=== PATIENT | female | born 1950 | race Caucasian/White ===

== ENCOUNTER → 2023-12-14 | Outpatient (CLI) | payer MEDICARE, SELFPAY ==
[2023-12-14 10:28] LABS: Collection Type, Urine Clean Catch
[2023-12-14 11:02] LABS: Parathyroid Hormone Intact 64.4 pg/ml (18.5-88.0)
[2023-12-14 11:08] LABS: Albumin, Serum 4.4 gm/dL (3.4-4.8); Anion Gap 4 (7-16); BUN/Creatinine Ratio 15 Ratio (12-20); Blood Urea Nitrogen 16 mg/dL (9-23); Calcium 9.8 mg/dL (8.3-10.6); Calcium (Corrected) 9.8 mg/dL (8.5-10.1); Carbon Dioxide 30.4 mMol/L (20.0-31.0); Chloride 106 mMol/L (98-107); Creatinine (Component) 1.1 mg/dL (0.6-1.3); Glucose 99 mg/dL (74-106); Osmolality,Calculated 280 (275-295); Phosphorous 2.9 mg/dL (2.4-5.1); Potassium 3.7 mMol/L (3.4-5.1); Sodium 140 mMol/L (136-145); eGFR 53 See Note
[2023-12-14 11:10] LABS: Bacteria,Urine Rare; Bilirubin,Urine Negative (Negative); Blood,Urine 2+ (Negative); Color,Urine Yellow (Lt Yel-Yel); Glucose, Urine Negative (Negative); Hyaline Casts,Urine < 1 /hpf (0-1); Ketones,Urine Negative (Negative); Leukocyte Esterase,Urine Positive (Negative); Nitrite,Urine Negative (Negative); Protein,Urine Trace (Neg - Trace); RBC,Urine 31 /hpf (0-3); Specific Gravity,Urine 1.023 (1.001-1.035); Squamous Epithelial Cell,Urine 35 /hpf (0-5); Urobilinogen,Urine Negative mg/dL (0.0-1.0); WBC,Urine 51 /hpf (0-5)
[2023-12-14 11:14] LABS: Clarity,Urine Hazy (Clear/Hazy)
[2023-12-14 11:23] LABS: Creatinine MALB Rnd Ur 230 mg/dL (30-125); Microalbumin Creat Ratio 8 mg/gCrea (<30); Microalbumin, Random Urine 19 mg/L (0-300)
== END | disposition home or self-care (01) ==
LOC: COPL 09:41
PROVIDERS: PCP Internal Medicine; Referring Provider Internal Medicine; Visit Provider Internal Medicine
DX: N17.9 Acute kidney failure, unspecified (principal); I10 Essential (primary) hypertension
CPT/HCPCS: 36415; 80069; 81001; 82043; 82570; 83970

== ENCOUNTER → 2024-03-05 | Outpatient (CLI) | payer MEDICARE, SELFPAY ==
[2024-03-05 11:27] LABS: Basophils % (Auto) 0 % (0-2.5); Eosinophils # (Auto) 0.1 Thou/mm3 (0.0-0.5); Eosinophils % (Auto) 2 % (0-10); Hematocrit 40.6 % (36.0-46.0); Hemoglobin 13.2 g/dL (12.0-16.0); Immature Granulocytes % (Auto) 1 % (0-0); Immature Granulocytes Auto 0.04 Thou/mm3 (0.00-0.00); Lymphocytes # (Auto) 1.9 Thou/mm3 (1.0-4.8); Lymphocytes % (Auto) 26 % (10-50); Mean Corpuscular HGB Conc 32.5 g/dl (31.0-37.0); Mean Corpuscular Hemoglobin 32.1 pg (25.0-35.0); Mean Corpuscular Volume 99 fL (80-100); Monocytes % (Auto) 13 % (0-12); Neutrophils # (Auto) 4.3 Thou/mm3 (1.8-7.7); Neutrophils % (Auto) 58 % (37-80); Nucleated Red Blood Cell % 0 /100 WBC (0); Platelet Count 288 Thou/mm3 (140-440); RDW Standard Deviation 49.6 fL (36.4-46.3); Red Blood Count 4.11 Miln/mm3 (4.00-5.20); White Blood Count 7.3 Thou/mm3 (3.6-11.0)
[2024-03-05 11:52] LABS: Sed Rate (ESR) 7 mm/hr (0-30)
[2024-03-05 11:55] LABS: Alanine Aminotransferase 29 U/L (10-49); Albumin, Serum 4.6 gm/dL (3.4-4.8); Albumin/Globulin Ratio 1.9 (1.2-2.2); Alkaline Phosphatase 62 U/L (46-116); Anion Gap 10 (7-16); Aspartate Amino Transferase 30 U/L (0-34); BUN/Creatinine Ratio 13 Ratio (12-20); Bilirubin,Total 0.3 mg/dL (0.3-1.2); Blood Urea Nitrogen 12 mg/dL (9-23); C-Reactive Protein < 0.4 mg/dL (0.0-0.9); Calcium 9.6 mg/dL (8.3-10.6); Calcium (Corrected) 9.6 mg/dL (8.5-10.1); Chloride 104 mMol/L (98-107); Creatinine (Component) 0.9 mg/dL (0.6-1.3); Globulin 2.4 gm/dL (2.3-3.5); Glucose 91 mg/dL (74-106); Osmolality,Calculated 280 (275-295); Potassium 3.8 mMol/L (3.4-5.1); Sodium 141 mMol/L (136-145); eGFR > 60 See Note
[2024-03-11 06:36] LABS: Vitamin D, 25-OH, D2 <4 ng/mL; Vitamin D, 25-OH, D3 33 ng/mL; Vitamin D, 25-OH, Total 33 ng/mL (30-100)
== END | disposition home or self-care (01) ==
LOC: COPL 09:56
PROVIDERS: PCP Internal Medicine; Referring Provider Internal Medicine Rheumatology; Visit Provider Internal Medicine Rheumatology
DX: M05.79 Rheumatoid arthritis with rheumatoid factor of multiple sites without organ or systems involvement (principal); M81.0 Age-related osteoporosis without current pathological fracture
CPT/HCPCS: 36415; 80053; 82306; 85025; 85652; 86140

== ENCOUNTER 2024-03-06 08:23 | Emergency (ER) | payer MEDICARE, SELFPAY ==
--- NOTE | 2024-03-06 08:33 | XR_ITS ---
Examination: CT chest, without intravenous contrast. CT abdomen, without intravenous contrast. CT pelvis, without intravenous contrast. 2-D sagittal and coronal reconstructions. 3-D reconstructions. Date and time of exam:March 06, 2024 0909 hours INDICATIONS: Patient fell last week with injury to the chest and abdomen, right-sided chest and abdomen pain CTDI vol (mgy) 6.75 DLP (MGycm)495 Technique: Multiple CT images, 3.0 mm slice thickness, obtained chest, abdomen, pelvis, with the high-resolution 64 slice scanner.. Sagittal and coronal 2-D reconstructions are obtained. 3-D reconstructions Low dose protocols were performed. One or more of the following dose reduction techniques were used; automated exposure control, adjustment of the mA and/or KV according to patient size, use of iterative reconstruction technique. Findings: Thoracic aorta pulmonary arteries intact on this noncontrast study No hemopericardium No pneumothorax, pulmonary contusion or hemothorax The manubrium the body the sternum intact No thoracic vertebral body compression fracture Acute fracture right fourth rib anteriorly without significant displacement Diffuse fatty infiltration throughout the liver No liver splenic or renal laceration Bilateral renal calculi, largest lower pole left kidney 5 mm No perinephric hematoma Abdominal aorta intact, no free blood in the abdomen No bowel obstruction Negative for pneumoperitoneum Colonic diverticulosis No pelvic mass Urinary bladder intact Hips bones of the pelvis intact Chronic osteoporotic compression L3 IMPRESSION: Acute nondisplaced fracture right fourth rib anteriorly Thoracic aorta pulmonary arteries intact No hemopericardium pneumothorax, pulmonary contusion or hemothorax No abdominal parenchymal laceration Bilateral renal calculi Abdominal aorta intact No free blood in the abdomen
[2024-03-06 08:34] VITALS: BP 130/73; PULSE 89; RESP 16; TEMP 37.1; O2SAT 96
--- NOTE | 2024-03-06 08:36 | EDNOTE_ITS ---
ED Fall Injury RME/HPI General Chief Complaint: Back Pain/Injury Stated Complaint: S/P FALL X1 WK , DYSPNEA, RIGHT CHEST- BACK PAIN Time Seen by Provider: 03/06/24 08:26 Arrival date/time: 03/06/24 08:23 RME / HPI RME / HPI Narrative: This section includes all my notes and documentations, including HPI, PE, and ED course.? Ok Pham MD HPI: 73 year old female with history of hypertension, hypothyroidism, arthritis pres ents to the ED for evaluation of right sided chest/rib cage pain today. Described as aching in sensation that is aggravated with movements or taking deep breaths. Reportedly suffered a ground level mechanical fall 1 week ago while walking in her home and evidently struck the entire right side just below the armpit down the right hip on a piece of furniture. States she has had mild pain since however worsening in the last 2 days. States she is taking Tramadol BID for arthritic pain that provides some relief. Denies any head injury or LOC. Denies back pain. No other complaints reported. ROS: All negative except as documented in HPI. Physical Exam: General:? Alert and oriented.? Appears uncomfortable. Eyes:? Conjunctivae and lids clear.? ENT:? No nasal congestion.? Neck:? Supple.? Heart:? RRR.? Lungs:? No respiratory distress.? Good air movement.? No rhonchi, wheezing, rales.?? Chest: Tenderness of the right rib cage laterally. Abdomen:? Soft and nontender.?? Legs:? No clubbing, cyanosis, edema.? Skin:? Warm and dry.?? Neuro:? Alert and oriented X 3.?? Musculoskeletal: All major joints and bones are not tender with no limited range of motion. I reviewed all diagnostic test results. My review of the CT report is?acute nondisplaced fracture right fourth rib anteriorly, no free blood in abdomen. At this point, diagnoses include?right rib fracture. Patient declined any pain medication here. Recommended supportive care. Based on my best medical judgment, made decision no further evaluation or treatment indicated at this time.? Patient understands and agrees to the disc harge instructions customized and printed, see below. Discharge Instructions from Dr. Pham printed for you: 1. Unfortunately, you broke your right fourth rib. So you may have significant pain for couple of months. 2. Try to resume your normal activity. Prolonged inactivity is terrible for your body. 3. Despite pain, take 3 very deep breaths every hour you are awake to keep your lungs inflated. 4. Tramadol for pain at home. And topical lidocaine patches as needed. 5. See a private doctor on 03/11/2024 for recheck. Ask for help until you are completely better. Ok Pham MD Related Data Home Medications ?Medication ?Instructions ?Recorded ?Confirmed Levothyroxine * (SYNTHROID *) 50 mcg PO QDAY #0 tabs 0 07/08/16 11/07/18 tramadol 50 mg tablet (Ultram) 100 mg PO BID #0 tabs 0 07/08/16 11/07/18 metoprolol tartrate 25 mg tablet 12.5 mg PO HS #0 tabs 07/09/16 11/07/18 meloxicam 15 mg tablet 15 mg PO QDAY 07/25/1711/07 [id number] carb-vit K 1 tab PO QDAY 07/2511/07/18 18 mg iron-400 mcg-500 mg tablet (Women's Multivitamin) prednisone 5 mg tablet 1 tab PO QDAY 07/25/1711/07 Allergies Allergy/AdvReac Type Severity Reaction Status Date / Time codeine AdvReac Intermediate Vomiting Verified 03/06/24 08:24 Review of Systems Review of Systems Systems Reviewed: All systems reviewed, normal except as documented Past Medical History Past Medical History CARDIAC: Positive Cardiac Arrhythmia and Hypertension GASTROINTESTINAL: Positive Hiatal Hernia and Gastroesophageal Reflux Disease GENITOURINARY: Positive Kidney Stones REPRODUCTIVE: Positive Previous Pregnancies MUSCULOSKELETAL: Positive Rheumatoid Arthritis ENDOCRINE: Positive Hypothyroidism OTHER HISTORY: Positive Hospitalization and Chicken Pox Family History FAMILY HISTORY: Positive Family Cardiac Disorders and Family Cancer Surgical History SURGICAL: Positive Thyroidectomy and Joint Replacement Social History SMOKING STATUS: Never smoker ED Exam Narrative Physical exam: As noted in HPI Course Quality Measures none Orders Category Date Time Status CT chest abdomen pelvis wo Stat Exams 03/06/24 08:33 Completed Vital Signs Vital signs: Vital Signs Temperature 98.7 F 03/06/24 08:34 Pulse Rate 89 03/06/24 08:34 Respiratory Rate 16 01/29/25 08:34 Blood Pressure 130/73 03/06/24 08:34 Pulse Oximetry (%) 96 03/06/24 08:34 Oxygen Delivery Method Room Air 03/06/24 08:34 Pulse ox is 96% on room air which is adequate. Fall MDM Narrative MDM Narrative:: IElina am scribing for and in the presence of Dr. Pham. Patient data External records reviewed:: [facility] previous records (I reviewed ED visit from 02/13/2021) Clinical information provided by:: patient Social determinants that could affect healthcare access:: none Patient has the following chronic illnesses:: hypertension, hypothyroidism, arthritis How is presenting disease/condition affected by chronic disease/condition?: uneffected by Evaluation data The following diagnostics were reviewed and interpreted by me:: lab results and radiology exam(s) Lab and/or radiology exams considered but not ordered:: None Interpretation Summary: My review of the CT report is?acute nondisplaced fracture right fourth rib anteriorly, no free blood in abdomen Medications / Prescriptions Medications or Prescriptions considered but not ordered:: None Medication administrations:: None Consultations Consultation(s) initiated? (list below): No Diagnosis Fall Differential Diagnosis: other (Rib fracture, rib contusion, chest contusion) Most likely diagnosis given after review of the tests above:: Right rib fracture Admission Indicated Admission indicated?: not indicated Explain why admission is indicated or not indicated:: Does not meet admission criteria Admission Request Was there a request for admission?: No Disposition Plan Disposition Plan: Discharge Discharge Attestation Discharge Attestation: The patient and all family members were given an opportunity to ask questions and understood the discharge instructions. Discharge instructions specifically effects, indications for sooner follow up or return to the emergency department, and the expected course of current diagnosis. Patient condition: Stable Discharge Plan Plan Patient Disposition: HOME (Self Care) Prescriptions/Referrals Prescriptions/Med Rec: No Action tramadol [Ultram] 50 MG tablet 100 mg PO BID Qty: 0 Patient Comments: FOR PAIN, NOT TO EXCEED 8 TABS IN 24 HRS Levothyroxine * (SYNTHROID *) 50 MCG tablet 50 mcg PO QDAY Qty: 0 metoprolol tartrate 25 MG tablet 12.5 mg PO HS Qty: 0 meloxicam 15 mg Tablet 15 mg PO QDAY prednisone 5 mg Tablet 1 tab PO QDAY Women's Multivitamin 18 mg iron-400 mcg-500 mg Tablet 1 tab PO QDAY Referrals: Griffin Ramirez MD [Primary Care Provider] - In 1 week Problem List Clinical Impression: Right rib fracture Patient/Caregiver Discharge Instructions Discharge Activity: activity as tolerated Education Materials: ED Rib Fracture Additional Instructions: Discharge Instructions from Dr. Pham printed for you: 1. Unfortunately, you broke your right fourth rib. So you may have significant pain for couple of months. 2. Try to resume your normal activity. Prolonged inactivity is terrible for your body. 3. Despite pain, take 3 very deep breaths every hour you are awake to keep your lungs inflated. 4. Tramadol for pain at home. And topical lidocaine patches as needed. 5. See a private doctor on 03/11/2024 for recheck. Ask for help until you are completely better. 6. Print Language: Amharic Stand Alone Forms: Ivette Award Info., Patient Portal Info Letter
== END 2024-03-06 10:32 | disposition home or self-care (01) ==
PROVIDERS: Emergency Provider Emergency Medicine; PCP Internal Medicine
DX: S22.31XA Fracture of one rib, right side, initial encounter for closed fracture (principal); W18.30XA Fall on same level, unspecified, initial encounter; Y93.01 Activity, walking, marching and hiking; Y92.009 Unspecified place in unspecified non-institutional (private) residence as the place of occurrence of the external cause
CPT/HCPCS: 71250; 74176; 99284

== ENCOUNTER → 2024-03-14 | Outpatient (BNVA) | payer MEDICARE, SELFPAY | END | disposition home or self-care (01) | PROVIDERS: PCP Internal Medicine; Referring Provider Internal Medicine; Visit Provider Urology | DX: N20.0 Calculus of kidney (principal); Z87.442 Personal history of urinary calculi; M06.9 Rheumatoid arthritis, unspecified; C44.91 Basal cell carcinoma of skin, unspecified; M79.7 Fibromyalgia; I10 Essential (primary) hypertension; K21.9 Gastro-esophageal reflux disease without esophagitis; E03.9 Hypothyroidism, unspecified | CPT/HCPCS: 81003; 99203; G0463 ==

== ENCOUNTER 2024-05-30 08:33 | Emergency (ER) | payer MEDICARE, SELFPAY ==
[2024-05-30 08:33] VITALS: BP 119/78; PULSE 88; RESP 16; TEMP 37.4; O2SAT 96; BMI 28.8
[2024-05-30 09:09] VITALS: BMI 29.0
--- NOTE | 2024-05-30 09:12 | XR_ITS ---
Examination: CT abdomen and pelvis without contrast. Coronal 3-D reconstructions. Sagittal 2-D reconstructions. Date and time of exam:May 30, 2024 0932 hours INDICATIONS: Onset left-sided flank pain beginning last night CTDI: vol (mGy): 8.75 DLP: (mGycm): 171 ! (04 (0.8 () Technique: Axial images of the abdomen have been obtained, 3 mm slice thickness Intravenous contrast material has not been administered. Low dose protocols were performed. One or more of the following dose reduction techniques were used; automated exposure control, adjustment of the mA and/or KV according to patient size, use of iterative reconstruction technique. Findings: No stones No pancreatic or adrenal mass Multiple bilateral renal calculi, largest in the lower pole left kidney is 7 mm No bowel obstruction Colonic diverticulosis Acute diverticulitis junction distal descending colon and rectosigmoid, axial image 158 No pelvic abscess Bladder intact IMPRESSION: Multiple bilateral renal calculi, no hydronephrosis or ureteral calculi Acute diverticulitis junction distal descending colon and sigmoid colon
--- NOTE | 2024-05-30 09:13 | PD.EDRME ---
Rapid Medical Screening Exam RME Arrival date/time: 05/30/24 08:33 74-year-old female with a history of hypothyroidism, hypertension presents to the emergency room with a chief complaint of left lower quadrant 10 out of 10 abdominal pain x 2 days I have greeted and performed a focused initial assessment of this patient. A comprehensive ED assessment and evaluation of the patient, analysis of all test results, and completion of the medical decision making process will be conducted by additional ED providers. Chief Complaint: Abdominal Pain Time Seen by Provider: 05/30/24 08:56 Vital signs: Vital Signs Temperature 99.3 F 05/30/24 08:33 Pulse Rate 88 05/30/24 08:33 Respiratory Rate 16 05/30/24 08:33 Blood Pressure 119/78 05/30/24 08:33 Pulse Oximetry (%) 96 05/30/24 08:33 Oxygen Delivery Method Room Air 05/30/24 08:33 Vital signs reviewed by provider: Yes
[2024-05-30] MEDS: HYDROcodone/APAP 5/325 TABLET 1 TAB PO (09:21)
[2024-05-30] MEDS: ONDANSETRON ODT 4 MG TABRAP PO (09:21)
[2024-05-30 10:02] LABS: Collection Type, Urine Clean Catch
[2024-05-30 10:40] LABS: Alanine Aminotransferase 26 U/L (10-49); Albumin, Serum 4.2 gm/dL (3.4-4.8); Albumin/Globulin Ratio 1.6 (1.2-2.2); Alkaline Phosphatase 41 U/L (46-116); Anion Gap 9 (7-16); Aspartate Amino Transferase 36 U/L (0-34); BUN/Creatinine Ratio 13 Ratio (12-20); Bilirubin,Total 0.7 mg/dL (0.3-1.2); Blood Urea Nitrogen 13 mg/dL (9-23); Calcium 8.9 mg/dL (8.3-10.6); Calcium (Corrected) 8.9 mg/dL (8.5-10.1); Carbon Dioxide 26.3 mMol/L (20.0-31.0); Chloride 104 mMol/L (98-107); Estimated Creatinine Clearance 48.7 mL/min (>60); Globulin 2.7 gm/dL (2.3-3.5); Glucose 103 mg/dL (74-106); Lipase 40 U/L (12-53); Osmolality,Calculated 277 (275-295); Potassium 3.6 mMol/L (3.4-5.1); Sodium 139 mMol/L (136-145); Total Protein 6.9 gm/dL (5.7-8.2); eGFR 59 See Note
[2024-05-30 11:03] LABS: Bacteria,Urine Rare; Bilirubin,Urine Negative (Negative); Blood,Urine 2+ (Negative); Color,Urine Yellow (Lt Yel-Yel); Glucose, Urine Negative (Negative); Ketones,Urine Negative (Negative); Leukocyte Esterase,Urine Positive (Negative); Nitrite,Urine Negative (Negative); Protein,Urine Negative (Neg - Trace); RBC,Urine 12 /hpf (0-3); Specific Gravity,Urine 1.023 (1.001-1.035); Squamous Epithelial Cell,Urine 19 /hpf (0-5); Urobilinogen,Urine Negative mg/dL (0.0-1.0); WBC,Urine 9 /hpf (0-5)
[2024-05-30 11:10] LABS: Clarity,Urine Hazy (Clear/Hazy)
--- NOTE | 2024-05-30 12:43 | EDNOTE_ITS ---
ED Abdominal Pain RME/HPI General Chief Complaint: Abdominal Pain Stated complaint: LEFT LOWER ABD PAIN SINCE LAST NIGHT, LOOSE STOOLS Time seen by provider: 05/30/24 08:56 Arrival date/time: 05/30/24 08:33 RME / HPI RME / HPI narrative: 74-year-old female with a history of hypothyroidism, hypertension presents to the emergency room with a chief complaint of left lower quadrant 10 out of 10 abdominal pain x 2 days Onset of symptoms earlier last night. Pain is nonradiating. Denies any diarrhea constipation fever or other complaints. Denies any vomiting also. Related Data Home Medications ?Medication ?Instructions ?Recorded ?Confirmed Levothyroxine * (SYNTHROID *) 50 mcg PO QDAY #0 tabs 0 07/08/16 03/14/24 tramadol 50 mg tablet (Ultram) 100 mg PO BID #0 tabs 0 07/08/16 03/14/24 metoprolol tartrate 25 mg tablet 12.5 mg PO HS #0 tabs 07/09/16 03/14/24 prednisone 5 mg tablet 1 tab PO QDAY 07/25/1703/14 Previous Rx's ?Medication ?Instructions ?Recorded ciprofloxacin HCl 500 mg tablet 500 mg PO BID #20 tabs 05/30/24 dicyclomine 20 mg tablet 20 mg PO BID PRN abdominal p ain 05/30/24 #20 tabs metronidazole 500 mg tablet 500 mg PO BID 10 days #20 tabs 05/30/24 Allergies Allergy/AdvReac Type Severity Reaction Status Date / Time codeine AdvReac Intermediate Vomiting Verified 05/30/24 08:35 Review of Systems Review of Systems Narrative Review of Systems: Review of system reviewed and within normal limits except mentioned in HPI ED Exam Narrative Physical exam: VITAL SIGNS: Reviewed. GENERAL APPEARANCE: Alert and interactive, follows commands, no acute distress, HEAD AND FACE: Non-traumatic. ENT: PERRL, pink conjunctivitis, eyelid no trauma, Mucous membrane moist. NECK: Supple, nontender, no nuchal rigidity. CHEST: No tenderness, no crepitus, no paradoxical movement, no retractions. LUNGS: Clear, well ventilated, symmetric, no rales, no wheezing, no ronchi, no stridor, good breath sounds bilaterally. HEART: Regular rate, regular rhythm, no murmur, no gallops. ABDOMEN: Soft, positive bowel sounds, nondistended, no guarding, left lower quadrant tenderness, no rebound, no masses, RECTAL: Deferred. GENITAL: Deferred. NEUROLOGICAL: Gross motor function intact sensory function intact, Appropriate for age. MUSCULOSKELETAL: low back nontender, full range of motion. EXTREMITIES: Nontender, full range of motion. SKIN: Color pink, dry, no rash, no lacerations, no abrasions, no contusions. LYMPHATICS: Deferred. Course Quality Measures none Orders Category Date Time Status CT abdomen pelvis wo con Stat Exams 05/30/24 09:12 Completed CMP [Comprehensive Metabolic Panel] Stat Lab 05/30/24 09:59 Completed Lipase Stat Lab 05/30/24 09:59 Completed UA [Urinalysis] Stat Lab 05/30/24 10:24 Completed Urine Culture Stat Lab 05/30/24 10:24 Received HYDROcodone*/APAP 5/325 [[place] 5/325] Med 05/30/24 09:13 Discontinued 1 tab PO X1 ONE Ondansetron Odt [Zofran Odt] Med 05/30/24 09:13 Discontinued 4 mg PO X1 ONE Vital Signs Vital signs: Vital Signs Temperature 99.3 F 05/30/24 08:33 Pulse Rate 88 05/30/24 08:33 Respiratory Rate 16 05/30/24 08:33 Blood Pressure 119/78 05/30/24 08:33 Pulse Oximetry (%) 96 05/30/24 08:33 Oxygen Delivery Method Room Air 05/30/24 08:33 Abdominal Pain MDM MDM Narrative MDM Narrative:: 74-year-old female with a history of hypothyroidism, hypertension presents to the emergency room with a chief complaint of left lower quadrant 10 out of 10 abdominal pain x 2 days Onset of symptoms earlier last night. Pain is nonradiating. Denies any diarrhea constipation fever or other complaints. Denies any vomiting also. Laboratory workup came back unremarkable. No leukocytosis urinalysis contaminated CT scan of the abdomen and pelvis showed Multiple bilateral renal calculi, no hydronephrosis or ureteral calculi Acute diverticulitis junction distal descending colon and sigmoid colon Patient will be sent home on Cipro and Flagyl Patient appears nontoxic and hemodynamically stable. Patient discharged home and instructed to follow-up with primary care provider in 24 to 48 hours. Instructed to return to the emergency department immediately if worsening of symptoms Patient data External records reviewed:: None Clinical information provided by:: patient Social determinants that could affect healthcare access:: none Patient has the following chronic illnesses:: Rheumatoid arthritis How is presenting disease/condition affected by chronic disease/condition?: uneffected by Evaluation data The following diagnostics were reviewed and interpreted by me:: lab results and radiology exam(s) Lab and/or radiology exams considered but not ordered:: None Interpretation Summary: See results in [facility] Medications / Prescriptions Medications or Prescriptions considered but not ordered:: None Medication administrations:: Medication Administration History Discontinued Medications Hydrocodone Bitart/Acetaminophen (Hydrocodone/Apap 5/325 Tablet) 1 tab PO X1 ONE Stop: 05/30/24 09:14 Last Admin: 05/30/24 09:21 Dose: 1 tab Documented By: LISANDRO Ondansetron HCl (Ondansetron Odt 4 Mg Tabrap) 4 mg PO X1 ONE; Protocol Stop: 05/30/24 09:14 Last Admin: 05/30/24 09:21 Dose: 4 mg Documented By: LISANDRO Huynh and Jet Consultations Consultation(s) initiated? (list below): No Diagnosis Differential diagnosis abdominal pain: abdominal pain, constipation and diverticulitis Most likely diagnosis given after review of the tests above:: Diverticulitis Admission Indicated Admission indicated?: not indicated Explain why admission is indicated or not indicated:: Stable Admission Request Was there a request for admission?: No Disposition Plan Disposition Plan: Discharge Discharge Attestation Discharge Attestation: The patient was given an opportunity to ask questions and understood the discharge instructions. Discharge instructions specifically effects, indications for sooner follow up or return to the emergency department, and the expected course of current diagnosis. Patient condition: Stable Discharge Plan Plan Patient Disposition: HOME (Self Care) Disposition Comment: stable Prescriptions/Referrals Prescriptions/Med Rec: New metronidazole 500 mg tablet 500 mg PO BID 10 Days Qty: 20 0RF ciprofloxacin HCl 500 mg tablet 500 mg PO BID Qty: 20 0RF dicyclomine 20 mg tablet 20 mg PO BID PRN (Reason: abdominal pain) Qty: 20 0RF No Action tramadol [Ultram] 50 MG tablet 100 mg PO BID Qty: 0 Patient Comments: FOR PAIN, NOT TO EXCEED 8 TABS IN 24 HRS Levothyroxine * (SYNTHROID *) 50 MCG tablet 50 mcg PO QDAY Qty: 0 metoprolol tartrate 25 MG tablet 12.5 mg PO HS Qty: 0 prednisone 5 mg Tablet 1 tab PO QDAY Referrals: Griffin Ramirez MD [Primary Care Provider] - In 1 week Problem List Clinical Impression: Diverticulitis Patient/Caregiver Discharge Instructions Discharge Activity: activity as tolerated Education Materials: ED Diverticulitis Additional Instructions: Thank you for the opportunity for serving you today. You are stable for discharged . You are advised to: Follow-up with your PCP in 1 to 2 days Return to ED for worsening of symptoms, fever, vomiting, worsening pain Increase oral fluids Take medication as prescribed Liquid diet for total 3 days advance as tolerated Print Language: [place] Stand Alone Forms: Ivette Award Info., Patient Portal Info Letter PA/CITY MANAGER Supervising Physician PA/ABDELRAHMAN Supervising Physician: MD Schuyler
== END 2024-05-30 12:50 | disposition home or self-care (01) ==
PROVIDERS: Nurse Practitioner Family; Emergency Provider Emergency Medicine; PCP Internal Medicine
DX: K57.32 Diverticulitis of large intestine without perforation or abscess without bleeding (principal); E03.9 Hypothyroidism, unspecified; I10 Essential (primary) hypertension
CPT/HCPCS: 36415; 74176; 80053; 81001; 83690; 85025; 87086; 99284; Q0162; A9270

== ENCOUNTER → 2024-07-16 | Outpatient (CLI) | payer MEDICARE, SELFPAY ==
[2024-07-16 11:50] LABS: Collection Type, Urine Clean Catch
[2024-07-16 12:13] LABS: Bacteria,Urine Rare; Bilirubin,Urine Negative (Negative); Blood,Urine 1+ (Negative); Color,Urine Yellow (Lt Yel-Yel); Glucose, Urine Negative (Negative); Hyaline Casts,Urine < 1 /hpf (0-1); Ketones,Urine Negative (Negative); Leukocyte Esterase,Urine Positive (Negative); Nitrite,Urine Negative (Negative); Protein,Urine 1+ (Neg - Trace); RBC,Urine 22 /hpf (0-3); Specific Gravity,Urine 1.023 (1.001-1.035); Squamous Epithelial Cell,Urine 27 /hpf (0-5); Urobilinogen,Urine Negative mg/dL (0.0-1.0); WBC,Urine 50 /hpf (0-5)
[2024-07-16 12:56] LABS: Clarity,Urine Hazy (Clear/Hazy)
== END | disposition home or self-care (01) ==
LOC: SLDO 10:51
PROVIDERS: Referring Provider Urology; Visit Provider Urology
DX: R31.9 Hematuria, unspecified (principal)
CPT/HCPCS: 81001

== ENCOUNTER → 2024-07-19 | Outpatient (BNVA) | payer MEDICARE, SELFPAY | END | disposition home or self-care (01) | PROVIDERS: PCP Internal Medicine; Referring Provider Internal Medicine; Visit Provider Urology | DX: N20.0 Calculus of kidney (principal); Z80.49 Family history of malignant neoplasm of other genital organs; M06.9 Rheumatoid arthritis, unspecified; C44.91 Basal cell carcinoma of skin, unspecified; M79.7 Fibromyalgia; I10 Essential (primary) hypertension; K21.9 Gastro-esophageal reflux disease without esophagitis; E03.9 Hypothyroidism, unspecified | CPT/HCPCS: 81003; 99212; G0463 ==

== ENCOUNTER → 2024-09-30 | Outpatient (CLI) | payer MEDICARE, SELFPAY ==
[2024-09-30 12:20] LABS: Alanine Aminotransferase 31 U/L (10-49); Albumin, Serum 4.4 gm/dL (3.4-4.8); Albumin/Globulin Ratio 1.7 (1.2-2.2); Alkaline Phosphatase 47 U/L (46-116); Anion Gap 10 (7-16); Aspartate Amino Transferase 42 U/L (0-34); BUN/Creatinine Ratio 11 Ratio (12-20); Bilirubin,Total 0.4 mg/dL (0.3-1.2); Blood Urea Nitrogen 12 mg/dL (9-23); C-Reactive Protein < 0.5 mg/dL (0.0-0.9); Calcium 10.1 mg/dL (8.3-10.6); Calcium (Corrected) 10.1 mg/dL (8.5-10.1); Carbon Dioxide 27.8 mMol/L (20.0-31.0); Chloride 106 mMol/L (98-107); Creatinine (Component) 1.1 mg/dL (0.6-1.3); Globulin 2.6 gm/dL (2.3-3.5); Glucose 96 mg/dL (74-106); Osmolality,Calculated 286 (275-295); Potassium 3.9 mMol/L (3.4-5.1); Sodium 144 mMol/L (136-145); Total Protein 7.0 gm/dL (5.7-8.2); eGFR 52 See Note
[2024-09-30 12:21] LABS: Vitamin D 25 Hydroxy Total 28.3 ng/mL (7.3-40.2)
[2024-09-30 12:39] LABS: Sed Rate (ESR) 9 mm/hr (0-30)
[2024-10-04 06:58] LABS: Vitamin D, 25-OH, D2 <4 ng/mL; Vitamin D, 25-OH, D3 29 ng/mL; Vitamin D, 25-OH, Total 29 ng/mL (30-100)
== END | disposition home or self-care (01) ==
LOC: COPL 10:41
PROVIDERS: PCP Internal Medicine; Referring Provider Nurse Practitioner Family; Visit Provider Nurse Practitioner Family
DX: M05.79 Rheumatoid arthritis with rheumatoid factor of multiple sites without organ or systems involvement (principal)
CPT/HCPCS: 36415; 80053; 82306; 85652; 86140

== ENCOUNTER → 2024-10-01 | Outpatient (CLI) | payer MEDICARE, SELFPAY ==
[2024-10-08 15:32] LABS: Source STOOL
[2024-10-09 05:06] LABS: Helicobacter pylori Ag, Stool* NOT DETECTED (NOT DETECTED)
== END | disposition home or self-care (01) ==
LOC: SLDO 13:14
PROVIDERS: Referring Provider Nurse Practitioner Family; Visit Provider Nurse Practitioner Family
DX: R19.7 Diarrhea, unspecified (principal); A04.8 Other specified bacterial intestinal infections
CPT/HCPCS: 87177; 87209; 87338

== ENCOUNTER → 2024-10-18 | Outpatient (CLI) | payer MEDICARE, SELFPAY ==
--- NOTE | 2024-10-18 15:30 | XR_ITS ---
Examination: CT abdomen without intravenous contrast. Coronal 2-D reconstructions. Sagittal 2-D reconstructions. Date and time of exam:October 18, 2024, 1525 hours, comparison May 30, 2024 INDICATIONS: Generalized abdominal pain beginning several days ago CTDI: vol (mGy): 8.19 DLP: (mGycm): 237 Technique: Axial images of the abdomen have been obtained, 3 mm slice thickness, without intravenous contrast 2-D sagittal coronal reconstructions Low dose protocols were performed. One or more of the following dose reduction techniques were used; automated exposure control, adjustment of the mA and/or KV according to patient size, use of iterative reconstruction technique. Findings: Diffuse fatty infiltration throughout the liver, no focal liver or splenic lesions Contracted gallbladder No pancreatic mass Minor nodular thickening left adrenal gland Bilateral renal calculi, the largest is in the lower pole left kidney 6 mm Aortic calcification no aneurysmal dilatation IMPRESSION: Bilateral nonobstructing renal calculi No hydronephrosis or ureteral calculi
== END | disposition home or self-care (01) ==
LOC: CCTX 15:09
PROVIDERS: PCP Internal Medicine; Referring Provider Nurse Practitioner Family; Visit Provider Nurse Practitioner Family
DX: N20.0 Calculus of kidney (principal)
CPT/HCPCS: 74150

== ENCOUNTER → 2024-12-10 | Outpatient (CLI) | payer MEDICARE, SELFPAY ==
[2024-12-10 09:32] LABS: Quantiferon-TB* See Sep Rpt
[2024-12-10 09:52] LABS: Basophils # (Auto) 0.0 Thou/mm3 (0.0-0.2); Basophils % (Auto) 0 % (0-2.5); Eosinophils # (Auto) 0.1 Thou/mm3 (0.0-0.5); Eosinophils % (Auto) 2 % (0-10); Hematocrit 38.9 % (36.0-46.0); Hemoglobin 12.9 g/dL (12.0-16.0); Immature Granulocytes Auto 0.03 Thou/mm3 (0.00-0.00); Lymphocytes # (Auto) 1.6 Thou/mm3 (1.0-4.8); Lymphocytes % (Auto) 30 % (10-50); Mean Corpuscular HGB Conc 33.2 g/dl (31.0-37.0); Mean Corpuscular Hemoglobin 33.5 pg (25.0-35.0); Mean Corpuscular Volume 101 fL (80-100); Monocytes # (Auto) 0.8 Thou/mm3 (0.0-0.8); Monocytes % (Auto) 15 % (0-12); Neutrophils # (Auto) 2.8 Thou/mm3 (1.8-7.7); Neutrophils % (Auto) 52 % (37-80); Nucleated Red Blood Cell # 0.00 Thou/mm3 (0.00-0.00); Nucleated Red Blood Cell % 0 /100 WBC (0); Platelet Count 271 Thou/mm3 (140-440); RDW Standard Deviation 53.0 fL (36.4-46.3); Red Blood Count 3.85 Miln/mm3 (4.00-5.20); White Blood Count 5.3 Thou/mm3 (3.6-11.0)
[2024-12-10 10:14] LABS: Alanine Aminotransferase 33 U/L (10-49); Albumin, Serum 4.7 gm/dL (3.4-4.8); Albumin/Globulin Ratio 2.2 (1.2-2.2); Alkaline Phosphatase 49 U/L (46-116); Anion Gap 8 (7-16); Aspartate Amino Transferase 39 U/L (0-34); BUN/Creatinine Ratio 10 Ratio (12-20); Bilirubin,Total 0.5 mg/dL (0.3-1.2); Blood Urea Nitrogen 11 mg/dL (9-23); C-Reactive Protein < 0.5 mg/dL (0.0-0.9); Calcium 10.5 mg/dL (8.3-10.6); Calcium (Corrected) 10.5 mg/dL (8.5-10.1); Carbon Dioxide 26.9 mMol/L (20.0-31.0); Chloride 108 mMol/L (98-107); Creatinine (Component) 1.1 mg/dL (0.6-1.3); Globulin 2.1 gm/dL (2.3-3.5); Glucose 107 mg/dL (74-106); Osmolality,Calculated 284 (275-295); Potassium 3.5 mMol/L (3.4-5.1); Sodium 143 mMol/L (136-145); Total Protein 6.8 gm/dL (5.7-8.2); eGFR 52 See Note
[2024-12-10 10:32] LABS: Sed Rate (ESR) 9 mm/hr (0-30)
[2024-12-10 12:01] LABS: Cocci Serology, IgM Negative (Negative)
[2024-12-11 10:12] LABS: Cocci Serology, IgG Negative (Negative)
== END | disposition home or self-care (01) ==
LOC: COPL 09:08
PROVIDERS: PCP Internal Medicine; Referring Provider Nurse Practitioner Family; Visit Provider Nurse Practitioner Family
DX: M06.09 Rheumatoid arthritis without rheumatoid factor, multiple sites (principal)
CPT/HCPCS: 36415; 80053; 85025; 85652; 86140; 86331; 86480; 86635

== ENCOUNTER → 2025-01-21 | Outpatient (BNVA) | payer MEDICARE, SELFPAY | END | disposition home or self-care (01) | PROVIDERS: PCP Internal Medicine; Referring Provider Internal Medicine; Visit Provider Urology | DX: N20.0 Calculus of kidney (principal); I10 Essential (primary) hypertension; E66.9 Obesity, unspecified; Z68.29 Body mass index [BMI] 29.0-29.9, adult | CPT/HCPCS: 81003; 99212; G0463 ==